=== PATIENT | male | born 1955 | race African-American/Black ===

== ENCOUNTER 2017-01-12 21:29 | Outpatient (CLI) | END 2017-01-12 21:30 | disposition home or self-care (01) | LOC: AMBL 21:29 | PROVIDERS: ATTEND Family Medicine | DX: R40.20 Unspecified coma (principal); R06.00 Dyspnea, unspecified; F10.10 Alcohol abuse, uncomplicated; R00.1 Bradycardia, unspecified; R73.9 Hyperglycemia, unspecified ==